=== PATIENT | female | born 1965 | race Caucasian/White ===

== ENCOUNTER 2016-04-22 19:24 | Inpatient (IN) | payer OTHER ==
--- NOTE | ~2016-04-22 | CO ---
Unit #: [id number] #: [id number] Patient: KEYLA ROMERO [id number] [place] [address] [facility]. [place], [place] [address] [id number] I MR#: [id number] NAME: KEYLA ROMERO ROOM: 55 Age: 51 Sex: F Admission Date: 04/22/2016 : 1965 Attending Physician: Jakub Johnson M.D. Primary Care Physician: Beatriz Garcia M.D. Consultation Date: 04/25/2016 CONSULTATION REPORT PRIMARY CARE PHYSICIAN Beatriz Garcia M.D. REASON FOR CONSULTATION 1. Drop in hemoglobin. 2. Nausea and vomiting. HISTORY OF PRESENT ILLNESS Ms. Romero is a very pleasant 51-year-old white female. 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 She mentions having been unwell for the past couple of months with increasing fatigue, followed by nausea and vomiting. She feels she could not walk, felt so heavy. In addition, she also been having some back pain. In the event, she presented to the ER. She was found to have a serum potassium of 1.1. The patient was given copious amounts of IV potassium and it has been hard to keep off with the potassium losses. Although, she has had some nausea and vomiting, there was no diarrhea and there was no suggestion from her history that she is having significant GI losses. PAST MEDICAL HISTORY Significant for history of bronchial asthma, hypothyroidism, and chronic back pain. PAST SURGICAL HISTORY She has had abdominal reconstructive surgery after extreme weight loss. ALLERGIES She has no known drug allergies. 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 FAMILY HISTORY Significant for stroke and dementia. HOME MEDICATIONS Include the following; Synthroid, Ambien, Klonopin, ProAir, Zofran, Ventolin, hydrocodone and acetaminophen, Alvesco, and Veramyst. REVIEW OF SYSTEMS Detailed review of organ systems does reveal some minimal weight loss. There is no history of fever, chills, or rigors. No history of headache, Unit #: [id number] #: [id number] Patient: KEYLA ROMERO seizures, chest pain, or syncope. There is history of lethargy and fatigue, as well as weakness of muscles of the lower extremities. No history of cough, expectoration, or hemoptysis. No history of dysuria, hematuria, or pyuria. No history of focal seizures or focal extremity weakness. No history of skin rash, aphthous ulcer in the mouth, or reactive arthritis. Rest of the review of organ systems is unremarkable. PHYSICAL EXAMINATION GENERAL: She is alert and oriented, and appears comfortable. VITAL SIGNS: Stable with a temperature of 98.5, pulse 92 per minute and regular, respiratory rate is 22, blood pressure 149/87. She weighs 178 pounds. Her baseline weight couple of years ago that was actually 150. HEENT: She has mild pallor. There being no icterus, lymphadenopathy, or peripheral edema. CARDIOVASCULAR: Reveal normal heart sounds. No murmurs on auscultation. LUNGS: Reveal normal breath sounds. Good air entry. ABDOMEN: Soft and nontender. Liver and spleen are not palpable. Bowel sounds normal. DIAGNOSTIC STUDIES LABORATORY RESULTS: Shows a hemoglobin of 11.6, the admission hemoglobin was 15.3. Her white count was 11.5 and is now down to 6.5, platelet count is 274. INR is 1.0. Serum chemistry shows normal BUN and creatinine and a serum potassium of 1.1 on admission. Post treatment, the patient's potassium had gone up to 4, but then dropped again to 2 later today. Blood glucose has varied between 150 to 190. CO2 shows mild metabolic acidosis and her TSH level was normal. LFTs are also normal. Tox screen is negative. Urinalysis shows nitrite positive, protein 1+, as well as positive bacteria and wbc's in the urine. CLINICAL IMPRESSION 1. The patient with significant anemia. I suspect this is probably dilutional after intravenous fluids being given. 2. There is no suggestion of overt gastrointestinal blood loss based upon the patient's history. 3. Hypokalemia, this most likely is a renal loss and the patient may have underlying renal tubular acidosis with potassium losses. A renal constant has been already done by Dr. Johnson and the patient will be seen by even attending. Lastly, the patient does have some gastrointestinal symptomatology and I suspect this is the result of hypokalemia rather than the cause of it. In view of drop in hemoglobin, an upper endoscopy will be performed later today. Based upon the latter, any further recommendations will be made. The patient will require potassium supplementation and bicarb. Considerable time was spent in explaining the patient as to possibly etiology of hypokalemia. Both she and her were reassured. An upper endoscopy will be done later today. Thank you for asking me to see this pleasant woman. I appreciate the consult. Dictated by... Stephany Lynn/dmitri TD: 04/26/2016 12:52 JOB #: [id number] Unit #: [id number] #: [id number] Patient: NICKKEYLA CONSULTATION REPORT X Ismael Oliver MD X CONSULTATION REPORT
--- NOTE | ~2016-04-22 | HP ---
Unit #: [id number] #: [id number] Patient: KEYLA ROMERO [id number] [facility]. [place], [place] [address] [id number] MR#: [id number] NAME: KEYLA ROMERO ROOM: [facility] Age: 51 Sex: F Admission Date: 04/22/2016 : 1965 Attending Physician: Rico Ibarra M.D. Primary Care Physician: Beatriz Garcia M.D. HISTORY AND PHYSICAL CHIEF COMPLAINT Weakness. HISTORY OF PRESENT ILLNESS The patient is a 51-year-old female who presents to [facility] emergency department with weakness. She states that this particular episode began approximately three weeks ago. She states that it has been progressive. It has progressed to the point where she has some profound weakness in her legs and hips and she cannot lift them. She states that all of these symptoms began back in January when she had a fall. She seems the [facility] for some back pain that she thinks might be related. In the emergency department she is noted to have a potassium of 1.1. PAST MEDICAL HISTORY Asthma, chronic pain, hypothyroidism. PAST SURGICAL HISTORY She has had abdominal reconstructive surgery after extreme weight loss. She has had "bladder tape." ALLERGIES None. SOCIAL HISTORY The patient denies tobacco, alcohol, or illicit drug use. FAMILY HISTORY Stroke and dementia. HOME MEDICATIONS Veramyst, Synthroid, Ambien, Alvesco, Klonopin, ProAir, Zofran, Ventolin, hydrocodone, and acetaminophen 7.5. REVIEW OF SYSTEMS Ten point review of systems obtained and negative except as per HPI with the addition of some weakness in her hands as well. PHYSICAL EXAMINATION VITAL SIGNS: Temperature 97.4, pulse 106, blood pressure 142/87. GENERAL: 51-year-old female in no acute distress, appears stated age. HEENT: Pupils equally round. Extraocular movements intact. Mucous membranes dry. NECK: Supple. No JVD and no lymphadenopathy. Unit #: [id number] #: [id number] Patient: KEYLA ROMERO CARDIAC: Regular rate and rhythm. No murmurs, gallops or rubs. LUNGS: Clear to auscultation bilaterally. ABDOMEN: Nontender and nondistended. Positive bowel sounds. EXTREMITIES: No clubbing, cyanosis or edema. SKIN: Warm and dry. No rashes, bruises or ulcers. PSYCH: Alert and oriented x3. Affect is appropriate. NEUROLOGIC: Cranial nerves II-XII intact grossly. Patient has bilateral lower extremity weakness. MUSCULOSKELETAL: No muscle or joint pain. No muscle or joint swelling. DIAGNOSTIC STUDIES LABORATORY STUDIES: Glucose 189, bicarb 20, potassium is 1.1, CK is 786. UA shows trace leuk esterase, nitrate positive, 5-10 white cells, 4+ bacteria and occasional squamous cells. IMAGING STUDIES: Chest x-ray is negative. ASSESSMENT AND PLAN 1. Hypokalemia: I have placed the patient on a potassium magnesium protocol. Magnesium level has been ordered. I have ordered serum renin and aldosterone levels. I have ordered TSH and cortisol levels as well. 2. Lower extremity weakness could be due to her hypokalemia. I have ordered an MRI of her lumbar spine; however, given some complaints of chronic back pain. She states this particular episode has been ongoing for three weeks. She states that it also affects her hands, which does not point to a lumbar spine process; however, given her complaints of intermittent back pain, I have gone ahead and ordered the MRI. 3. Prophylaxis: The patient started on Lovenox. Dictated by Rico Ibarra M.D. KEVNI/leroy TD: 04/23/2016 05:46 JOB #: [id number] HISTORY AND PHYSICAL X Rico Ibarra MD X HISTORY AND PHYSICAL
--- NOTE | ~2016-04-22 | EKG ---
PATIENT: KEYLA ROMERO UNIT #: [id number] Ventricular Rate: 91 BPM Atrial Rate: 91 BPM P-R Interval: 158 ms QRS Duration: 88 ms Q-T Interval: 400 ms QTC Calculation(Bezet): 492 ms P Freehold: 62 degrees Calculated R Freehold: -49 degrees Calculated T Freehold: 57 degrees Diagnosis Line: Normal sinus rhythm Diagnosis Line: Left anterior fascicular block Diagnosis Line: Nonspecific T wave abnormality Diagnosis Line: Prolonged QT Diagnosis Line: Abnormal ECG Diagnosis Line: When compared with ECG of 22-APR-2016 17:44, Diagnosis Line: Criteria for Inferior infarct are no longer Diagnosis Line: Present Diagnosis Line: ST no longer depressed in Lateral leads Diagnosis Line: Nonspecific T wave abnormality, worse in Inferior Diagnosis Line: leads Diagnosis Line: Diagnosis Line: Confirmed by EMLLISSA SINGH MD ([id number]) on Diagnosis Line: 04/30/2016 3:59:48 PM INTERPRETING MD: FRANCISCO JOSEPH
--- NOTE | ~2016-04-22 | US77 ---
[facility] A Service of [facility] & [facility] RADIOLOGY TEXT RESULTS PATIENT: KEYLA ROMERO LOCATION: [place] [address] : [birth year] UNIT #: [id number] AGE: [address]: Jakub Johnson MD SEX: F ORDER DR: [id number] [facility] [address] [place], [place] [address] [id number] I MR#: [id number] Acc #: [id number] NAME: KEYLA ROMERO : 1965 SEX: F STUDY DATE/TIME: 04/25/2016 21:29 UNIT: [facility] ROOM: [facility] STUDY DESCRIPTION: US Kidney Bilateral Complete Attending Physician: Jakub Johnson M.D. Ordering Physician: Jakub Johnson M.D. Primary Care Physician: Beatriz Garcia M.D. MEDICAL IMAGING REPORT This report is preliminary unless electronic signature is present EXAM Bilateral renal ultrasound, date of study is 04/25/2016. COMPARISON None. HISTORY Urinary tract infection for 2 days. FINDINGS Both kidneys are normal in size and echotexture without evidence of mass, calcification or hydronephrosis on either side. Urinary bladder is normal. IMPRESSION Normal negative bilateral renal ultrasound. Dictated by... Khanh Frank M.D. THIS IS AN ELECTRONICALLY VERIFIED REPORT Khanh Frank M.D. at 04/29/2016 4:33 PM TEV/psc TD: 04/26/2016 03:03 JOB #: [id number] MEDICAL IMAGING REPORT COPY
--- NOTE | ~2016-04-22 | TOC ---
Unit #: [id number] #: [id number] Patient: KEYLA ROMERO [id number] [address] [place], [place] [address] [id number] I MR#: [id number] NAME: KEYLA ROMERO ROOM: [facility] Age: 51 Sex: F Admission Date: 04/22/2016 : 1965 Attending Physician: Jakub Johnson M.D. Primary Care Physician: Beatriz Garcia M.D. TRANSFER OF CARE SUMMARY CONSULTANTS 1. Dr. Ismael Oliver. 2. Dr. Lai Umaña Jr. PROCEDURES DONE EGD. Essentially normal study. ADMITTING DIAGNOSES 1. Hypokalemia. 2. History of asthma. 3. Chronic pain. 4. Hypothyroidism. FURTHER DIAGNOSES 1. Hypokalemia, possibly secondary to renal tubular acidosis. 2. Urinary tract infection with Escherichia coli. 3. Anemia, possibly dilutional. HISTORY OF PRESENT ILLNESS The patient is a 51-year-old lady with a past medical history of asthma, hypothyroidism, chronic back pain. Presented to the hospital on the with the chief complaint of profound weakness. In the initial workup, her potassium was noted to be 1.1, and she was admitted for further management. She was also noted to have a urinary tract infection with E-coli. She is started on Rocephin, to which is sensitive. She needs 3 more days of antibiotics, until the 6th of this month, to complete the duration of antimicrobials. For the hypokalemia, initially she was getting replacement but persistently remaining low, and her bicarb is also low. Renal is consulted. They are working her up for renal tubular acidosis. Anemia. Her hemoglobin dropped down from 15 to 11 during the hospital course. For further workup, Dr. Oliver was consulted. He did an EGD, which was essentially normal. No colonoscopy is planned at this point. Thought to be possibly dilutional. Will monitor. Kindly note a final discharge summary will be dictated by me or my colleague at the time of actual discharge. Dictated by... Unit #: [id number] #: [id number] Patient: KEYLA ROMERO Jakub Johnson M.D. PS/db TD: 04/26/2016 12:12 JOB #: [id number] TRANSFER OF CARE SUMMARY X X TRANSFER OF CARE SUMMARY
--- NOTE | ~2016-04-22 | CR72 ---
[facility] A Service of [facility] & [facility] RADIOLOGY TEXT RESULTS PATIENT: KEYLA ROMERO LOCATION: [place] [address] : [birth year] UNIT #: [id number] AGE: [address]: Jakub Johnson MD SEX: F ORDER DR: [id number] [facility] [address] [place], [place] [address] [id number] I MR#: [id number] Acc #: [id number] NAME: KEYLA ROMERO : 1965 SEX: F STUDY DATE/TIME: 04/22/2016 20:59 UNIT: [facility] ROOM: [facility] STUDY DESCRIPTION: CR Chest Single View Portable Attending Physician: Rico Ibarra M.D. Ordering Physician: Deng Hernandez M.D. Primary Care Physician: Beatriz Garcia M.D. MEDICAL IMAGING REPORT This report is preliminary unless electronic signature is present EXAM Portable chest, 04/22/2016 HISTORY Generalized weakness. Upper and lower bilateral lower extremity weakness and pain with shortness of breath on exertion for 3 weeks. FINDINGS A single AP portable view of the chest shows both lungs to be clear. The heart is normal in size. The mediastinal contour is normal. No significant bone abnormalities are seen. IMPRESSION Normal portable chest. Dictated by... Praveen Cassidy M.D. THIS IS AN ELECTRONICALLY VERIFIED REPORT Praveen Cassidy M.D. at 04/23/2016 4:20 PM NEELAM/dheeraj TD: 04/23/2016 03:30 JOB #: [id number] MEDICAL IMAGING REPORT COPY
--- NOTE | ~2016-04-22 | CO ---
Unit #: [id number] #: [id number] Patient: KEYLA ROMERO [id number] [address] [place], [place] [address] [id number] I MR#: [id number] NAME: KEYLA ROMERO ROOM: [facility] Age: 51 Sex: F Admission Date: 04/22/2016 : 1965 Attending Physician: Jakub Johnson M.D. Primary Care Physician: Beatriz Garcia M.D. Consultation Date: 04/25/2016 CONSULTATION REPORT REASON FOR CONSULTATION Profound hypokalemia. HISTORY OF PRESENT ILLNESS Ms. Romero is a very pleasant 51-year-old female, who was brought to the emergency room on 04/22/2016 for complaints of severe weakness. It had been going on for several weeks and getting progressively worse to the point where her family was having to help her and lift her legs and get herself into and out of a chair. She had had similar type of symptoms back in January when she had a fall that seem to get better. She was found to have a potassium level of 1.1 on admission that has been difficult to correct. She has been getting aggressive potassium replacement and got up to 4.1 yesterday morning before dropping back down to 2.1 today. This has been occurring in the setting of a metabolic acidosis as well. She denies any history of kidney stones. There is a family history of rheumatologic disease with her mother having rheumatoid arthritis. The patient has had some mild nausea at times and just had an EGD that was normal. She denies any preadmission vomiting or diarrhea issues. No swelling issues. She is unaware of any blood pressure issues, although she has had some occasional high readings here. She denies any drug use. She does not sniff or brewer any paint. PAST MEDICAL HISTORY Significant for chronic back pain with degenerative disk disease, hypothyroidism, and asthma. PAST SURGICAL HISTORY She has had a tummy tuck, breast lift, and a bladder lift. MEDICATIONS Her home medications are hydrocodone p.r.n., Ventolin inhaler, Zofran p.r.n., ProAir inhaler, Alvesco 2 puffs as needed, Klonopin b.i.d., Veramyst inhaler, Synthroid 137 mcg a day, and Ambien at bedtime. ALLERGIES She has no known drug allergies. FAMILY HISTORY Significant for dementia, stroke, as well as rheumatoid arthritis. SOCIAL HISTORY The patient denies any tobacco, alcohol, or drug use. Urine tox screen, which is positive for the opiates. Unit #: [id number] #: [id number] Patient: KEYLA ROMERO REVIEW OF SYSTEMS A complete 12-point review of systems was completed with the above findings. She has not had any fevers or chills. No headache. No dizziness. No nosebleed, sore throat, or earache. No chest pain. She has had an occasional palpitations over the last several weeks. No shortness of breath. No bright red blood per rectum or melena. No hematuria. No flank pain, but does have chronic low back pain. No rashes. No itching. No fevers. No chills. No night sweats or hot flashes. No intolerance to heat or cold. No bleeding issues. No recent weight changes. Unless otherwise indicated, the review of systems was negative. PHYSICAL EXAMINATION VITAL SIGNS: The patient is afebrile, pulse 92, respiratory rate 22, blood pressure 149/87. GENERAL: This is a pleasant 51-year-old white female, who is alert and oriented, currently in no acute distress. HEENT: Head is atraumatic and normocephalic. Eyes show pink conjunctivae with no scleral icterus. No nasal drainage or nosebleed. Oropharynx is moist. No thrush. NECK: Shows no JVD. No rigidity. HEART: Regular rate and rhythm with no murmur or rub appreciated. LUNGS: Clear bilaterally with no wheezing or rhonchi. Breathing is nonlabored. ABDOMEN: Soft and nontender. Bowel sounds are present. EXTREMITIES: No lower extremity clubbing, cyanosis, or edema. SKIN: Dry. No rashes identified. She does have numerous tattoos. MUSCULOSKELETAL: No joint effusions noted. No CVA tenderness to palpation. NEUROLOGIC: Cranial nerves are grossly intact with no gross motor deficits. LYMPHATIC: There is no neck or cervical lymphadenopathy. PSYCHIATRIC: Mood and affect appear normal. DIAGNOSTIC STUDIES LABORATORY RESULTS: Admission CBC showed a slightly elevated white count of 11.5. Chemistry on admission showed a potassium of 1.1 with a bicarb of 20, anion gap of 12, creatinine was normal at 1. CK level was a little bit elevated at 786. INR was 1. Magnesium level was normal at 2.9. Urinalysis was nitrite positive with white blood cells and bacteria. Her pH was 6.5. Urine drug screen, again was positive for opiates. Thyroid-stimulating tests was normal at 3. Cortisol level was 18. Hemoglobin A1c 5.6. Renin in urine potassium was on the higher side at 31. Potassium level did come up yesterday to normal at 4.1, but was back down to 2.1 this morning with a bicarb of 16 and anion gap of 6. Urine culture was positive for E. coli. ASSESSMENT AND PLAN 1. Hypokalemia. Duration of this problem is not known as she has not been getting regular blood work, it sounds like or seeing a regular doctor as of late. Her previous doctor apparently only checked her thyroid test. I suspect she has a renal tubular acidosis and we will start workup tonight. Urine studies have been ordered. I will be also running a transtubular potassium gradient study, but it looks like she is losing potassium through her kidneys. I will start replacement with potassium citrate tonight and recheck a potassium level after her current 6 potassium run this evening is completed. 2. Non-anion gap acidosis. This appears to be due to the renal tubular Unit #: [id number] #: [id number] Patient: KEYLA ROMERO acidosis, as she does not seem to have any gastrointestinal losses or any other cause of elevate non-anion gap acidosis. We will be replacing the bicarbonate with citrate and again this will be started tonight. 3. Questionable hypertension. Renin was ordered on admission as well as an COLLIN level, but no aldosterone. I will be checking an aldosterone level in the morning. Blood pressure does not seem bad enough to consider hyperaldosterone as the primary cause of the hypokalemia. 4. Urinary tract infection, on antibiotics. 5. Chronic pain syndrome with back pain. 6. The patient did have an EGD today that was normal. I would like to thank Dr. Johnson for this consult and the opportunity to participate in evaluation and care of Ms. oRmero. Dictated by... Lai Umaña Jr., M.D. RAYMOND/dmitri TD: 04/26/2016 01:55 JOB #: [id number] CONSULTATION REPORT X Lai Umaña MD CONSULTATION REPORT
--- NOTE | ~2016-04-22 | OR ---
Unit #: [id number] #: [id number] Patient: KEYLA ROMERO [id number] [address] [place], [place] [address] [id number] I MR#: [id number] NAME: KEYLA ROMERO ROOM: [facility] Date of Procedure: 04/25/2016 Admission Date: 04/22/2016 Surgeon: Ismael Oliver M.D. : 1965 Attending Physician: Jakub Johnson M.D. Primary Care Physician: Beatriz Garcia M.D. OPERATIVE REPORT PRIMARY CARE PHYSICIAN Beatriz Garcia M.D. PREOPERATIVE DIAGNOSES Nausea, vomiting, severe hypokalemia. PROCEDURE PERFORMED Upper gastrointestinal endoscopy. POSTOPERATIVE DIAGNOSIS Completely normal examination up to third part of duodenum. RECOMMENDATIONS The patient does not have any pathology in the upper gastrointestinal tract. I suggest doing a stool study for occult blood and consider an outpatient colonoscopy at a later date. Right now, the most significant problem resolved is the profound hypokalemia, most likely from renal losses due to some form of renal tubular acidosis. SEDATION USED MAC. DESCRIPTION OF PROCEDURE Following detailed explanation of potential risks and complications of an upper endoscopy, namely perforation, bleeding, and complication related to sedation, the patient was brought to GI lab and laid in the left lateral decubitus position. Lubricated tip of the Olympus video upper endoscope was passed through the bite block into the proximal esophagus under direct vision. The entire esophageal mucosa was examined and appeared normal. Z-line was nicely demarcated, there being no esophagitis or hiatus hernia. The scope was then advanced into the gastric cavity and the latter was insufflated. Mucosa of the fundus, body, and antrum was examined and appeared unremarkable. Pylorus was intubated with visualization of the normal duodenal bulb and second and third part of the duodenum. Upon withdrawal and retroflexion, incisura, cardia, and greater curve was examined and no additional findings were noted. The scope was then withdrawn in the distal esophagus. The entire esophageal mucosa was examined all the way up to pharynx. No additional findings were noted. The patient tolerated the procedure without any postprocedure complications. Unit #: [id number] #: [id number] Patient: KEYLA ROMERO Dictated by... Stephany Lynn/dmitri TD: 04/26/2016 12:26 JOB #: [id number] . OPERATIVE REPORT X Ismael Oliver MD X PROCEDURE OPERATIVE NOTE
--- NOTE | ~2016-04-22 | DS ---
Unit #: [id number] #: [id number] Patient: KEYLA ROMERO [id number] [address] [address] [id number] I MR#: [id number] NAME: KEYLA ROMERO ROOM: [facility] Age: 51 Sex: F Admission Date: 04/22/2016 : 1965 Discharge Date: 04/28/2016 Attending Physician: Jakub Johnson M.D. Primary Care Physician: Beatriz Garcia M.D. DISCHARGE SUMMARY FINAL DIAGNOSIS Renal tubular acidosis type 1. SECONDARY DIAGNOSES 1. Hypokalemia. 2. Anemia. 3. Urinary tract infection. 4. Hypothyroidism. 5. Insomnia. CONSULTS 1. Dr. Ismael Oliver, Gastroenterology. 2. Dr. Thomas Templeton, Nephrology. PROCEDURES EGD. HOSPITAL COURSE The patient is a pleasant 51-year-old female who presented with symptomatic anemia with increasing fatigue and weakness. Dr. Oliver did see the patient and had an EGD. The plan is for colonoscopy as an outpatient. She was profoundly hypokalemic during this hospitalization and had to be aggressively managed. The working diagnosis right is RTA 1. She was evaluated and is suitable and stable for discharge and will be discharged in stable condition. DISCHARGE MEDICATIONS 1. Spironolactone 100 mg p.o. daily. 2. Franklin 7.5/325 at 2 tablets p.o. at bedtime, prescription given for 14 pills. 3. Clonazepam 1 mg p.o. b.i.d. 4. Ambien 5 mg p.o. at bedtime p.r.n., prescription given for 10 pills. 5. Flonase nasal 1 squirt to each nostril b.i.d. 6. Asmanex HFA 1 inhalation daily. 7. Vantin 200 mg p.o. b.i.d. for 7 days for UTI. FOLLOWUP 1. She is to schedule followup with primary care physician in three to five days. 2. She is to schedule followup with Nephrology in one to two weeks. Time spent coordinating discharge about 27 minutes. Dictated by... Unit #: [id number] #: [id number] Patient: KEYLA ROMERO M.D. OO/am TD: 04/28/2016 15:17 JOB #: [id number] DISCHARGE SUMMARY X Genaro Campoverde MD DISCHARGE SUMMARY
--- NOTE | ~2016-04-22 | EKG ---
PATIENT: KEYLA ROMERO UNIT #: [id number] Ventricular Rate: 99 BPM Atrial Rate: 99 BPM P-R Interval: 178 ms QRS Duration: 100 ms Q-T Interval: 384 ms QTC Calculation(Bezet): 492 ms P Millry: 40 degrees Calculated R Millry: -63 degrees Calculated T Millry: 71 degrees Diagnosis Line: Normal sinus rhythm Diagnosis Line: Possible Left atrial enlargement Diagnosis Line: Left anterior fascicular block Diagnosis Line: Marked ST abnormality, possible lateral Diagnosis Line: subendocardial injury Diagnosis Line: Abnormal ECG Diagnosis Line: No previous ECGs available Diagnosis Line: Confirmed by CHIDI BRYANT MD ([id number]) on Diagnosis Line: 04/23/2016 11:55:13 AM INTERPRETING : JASS
--- NOTE | ~2016-04-22 | EKG ---
PATIENT: KEYLA ROMERO UNIT #: [id number] Ventricular Rate: 98 BPM Atrial Rate: 98 BPM P-R Interval: 156 ms QRS Duration: 86 ms Q-T Interval: 386 ms QTC Calculation(Bezet): 492 ms P Wickliffe: 48 degrees Calculated R Wickliffe: -44 degrees Calculated T Wickliffe: 13 degrees Diagnosis Line: Normal sinus rhythm Diagnosis Line: Left axis deviation Diagnosis Line: Nonspecific T wave abnormality Diagnosis Line: Abnormal ECG Diagnosis Line: When compared with ECG of 27-APR-2016 08:33, Diagnosis Line: (unconfirmed) Diagnosis Line: No significant change was found Diagnosis Line: Confirmed by MELLISSA SINGH MD ([id number]) on Diagnosis Line: 04/30/2016 4:01:41 PM INTERPRETING MD: FRANCISCO JOSEPH
--- NOTE | ~2016-04-22 | XA166 ---
[facility] A Service of [facility] & [facility] RADIOLOGY TEXT RESULTS PATIENT: KEYLA ROMERO LOCATION: [facility] 553-01 : [birth year] UNIT #: [id number] AGE: [address]: Jakub Johnson MD SEX: F ORDER DR: [id number] [facility] [address] [place], [place] [address] [id number] I MR#: [id number] Acc #: [id number] NAME: KEYLA ROMERO : 1965 SEX: F STUDY DATE/TIME: 04/23/2016 15:07 UNIT: C5B ROOM: [facility] STUDY DESCRIPTION: XA PICC Line Placement WO Port Attending Physician: Jakub Johnson M.D. Ordering Physician: Jakub Johnson M.D. Primary Care Physician: Beatriz Garcia M.D. MEDICAL IMAGING REPORT This report is preliminary unless electronic signature is present EXAM PICC placement with ultrasound and fluoroscopic guidance HISTORY Venous access needed. TECHNIQUE The procedure was explained to the patient, including risks, benefits and complications. Informed consent was obtained and a formal time-out procedure was utilized. Full barrier sterile technique was employed via standard protocol. Using full barrier sterile technique and following local anesthesia with 1% Xylocaine, a brachial vein was punctured above the elbow on the left with ultrasound guidance. Ultrasound was used to confirm vessel patency, which was confirmed, and permanent ultrasound images were recorded. An 0.018 guidewire was passed into the superior vena cava under fluoroscopic guidance. A dilator and sheath were placed over the wire. A 5-Belizean double-lumen PICC was measured to 45 cm, cut and deployed, with the tip positioned in the upper right atrium. The line was secured in place with an adhesive patch and antibiotic patch. Total fluoroscopy time 0.1 minutes. Total dose 2 mGy. IMPRESSION Successful placement of a 5-Belizean double-lumen PICC via the left brachial vein above the elbow with ultrasound and fluoroscopic guidance. Dictated by... Med Warren M.D. THIS IS AN ELECTRONICALLY VERIFIED REPORT Med Warren M.D. at 04/24/2016 4:42 PM [facility] A Service of [facility] RADIOLOGY TEXT RESULTS PATIENT: KEYLA ROMERO LOCATION: [facility] [id number] : [birth year] UNIT #: [id number] AGE: [address]: Jakub Johnson MD SEX: F ORDER DR: KESHAV/azul TD: 04/23/2016 21:26 JOB #: [id number] MEDICAL IMAGING REPORT COPY
--- NOTE | ~2016-04-22 | CT71 ---
[facility] A Service of [facility] & [facility] RADIOLOGY TEXT RESULTS PATIENT: KEYLA ROMERO LOCATION: [facility] 55- : [birth year] UNIT #: [id number] AGE: [address]: Jakub Johnson MD SEX: F ORDER DR: [id number] [facility] [address] [place], [place] [address] [id number] I MR#: [id number] Acc #: [id number] NAME: KEYLA ROMERO : 1965 SEX: F STUDY DATE/TIME: 04/22/2016 18:40 UNIT: [facility] ROOM: [facility] STUDY DESCRIPTION: CT Head Wo Contrast Attending Physician: Rico Ibarra M.D. Ordering Physician: Deng Hernandez M.D. Primary Care Physician: Beatriz Garcia M.D. MEDICAL IMAGING REPORT This report is preliminary unless electronic signature is present EXAM Head CT without contrast, 04/22/2016 HISTORY Dizziness and generalized weakness for 2 months with no known injury. TECHNIQUE Axial noncontrast images were obtained from the skull base to the vertex. This CT exam was performed with one or more of the following radiation dose reduction techniques: Automatic exposure control, adjustment of mA and/or kV according to patient size, and iterative reconstruction. FINDINGS Ventricular size and configuration are normal. There is no evidence of acute infarct or hemorrhage. There are no extraaxial fluid collections. No mass lesion or mass effect is seen. There are no skull fractures. IMPRESSION Normal noncontrast head CT. Dictated by... Praveen Cassidy M.D. THIS IS AN ELECTRONICALLY VERIFIED REPORT Praveen Cassidy M.D. at 04/23/2016 4:19 PM KRT/azul TD: 04/23/2016 01:46 JOB #: [id number] MEDICAL IMAGING REPORT COPY
[2016-04-22 18:23] LABS: BASOPHIL# 0.1 X10e3 (0-0.3); BASOPHIL% 1.1 % (0-2.5); EOSINOPHIL# 0.1 X10e3 (0-0.7); EOSINOPHIL% 1.1 % (0.0-7.0); HEMATOCRIT 44.1 % (35.0-45.0); HEMOGLOBIN 15.3 gm/dL (12.0-16.0); LYMPHOCYTE# 1.8 X10e3 (1.0-3.5); LYMPHOCYTE% 15.7 % (17.0-45.0); MEAN CELL VOLUME 85.3 FL (83-96); MEAN CORPUSCULAR HEMOGLOBIN 29.5 PG (28-34); MEAN CORPUSCULAR HGB CONC 34.7 g/dL (30-36); MEAN PLATELET VOLUME 9.2 FL (6.5-11.5); MONOCYTE# 0.8 X10e3 (0-1.0); MONOCYTE% 6.5 % (3.0-12.0); NEUTROPHIL# 8.7 X10e3 (1.5-7.1); NEUTROPHIL% 75.6 % (40-75); PLATELET COUNT 411 X10e3 (140-420); RED BLOOD COUNT 5.18 X10e (3.90-5.30); WHITE BLOOD COUNT 11.5 X10e3 (4.0-10.5)
[2016-04-22 18:30] LABS: DIFF IND NO
[2016-04-22 18:44] LABS: ALBUMIN SERUM 4.6 g/dL (3.5-5.0); ALKALINE PHOSPHATASE 76 U/L (32-92); ALT (SGPT) 36 U/L (10-40); AST (SGOT) 34 U/L (10-42); BILIRUBIN, DIRECT 0.1 mg/dL (0.0-0.2); BILIRUBIN,INDIRECT 0.6 mg/dL (0.0-0.9); BILIRUBIN,TOTAL 0.7 mg/dL (0.2-2.0); BLOOD UREA NITROGEN 9 mg/dL (9-23); CALCIUM SERUM 9.8 mg/dL (8.4-10.2); CARBON DIOXIDE 20 mmol/L (22-31); CHLORIDE 105 mmol/L (100-111); CPK (CREATINE PHOSPHOKINASE) 786 IU/L (26-140); GLOM FILT RATE Estimated ABOVE60 mL/min (>60); GLUCOSE FASTING 189 mg/dL (70-110); PARTIAL THROMBOPLASTIN TIME 28.3 SECONDS (23.5-31.3); PROTEIN TOTAL SERUM 7.9 g/dL (6.0-8.3); PROTHROMBIN TIME (PATIENT) 10.8 SECONDS (9.6-11.5); SODIUM 137 mmol/L (135-145)
[2016-04-22 18:47] LABS: POTASSIUM 1.1 mmol/L (3.5-5.1)
[~2016-04-22 19:24] MED LIST: ALVESCO INHALER INH; KLONOPIN PO; SYNTHROID PO; ULTRAM PO; ZOFRAN ODT4 MG PO; [UNRECOGNIZED DRUG - OTHER]
[2016-04-22 19:30] LABS: POC - CKMB 21.4 ng/mL (0.0-7.9); POC - TROPONIN <0.05 ng/mL (<=0.05)
[2016-04-22 20:20] LABS: URINE SOURCE CLEAN CATCH
[2016-04-22 20:39] LABS: CULTURE INDICATED? YES; U HYALINE CASTS AUWI 0-2 /[LPF]; URBCS1 AUWI 0-2 /[HPF] (0-2); URINE APPEARANCE CLOUDY; URINE BACTERIA AUWI 4+ (NEGATIVE); URINE BILIRUBIN NEG (NEG); URINE BLOOD 2+ (NEG); URINE COLOR YELLOW; URINE GLUCOSE NEG (NEG); URINE KETONE NEG (NEG); URINE LEUKOCYTE ESTERASE TRACE (NEG); URINE NITRATE POS (NEG); URINE PH 6.5 (5-8); URINE PROTEIN 1+ (NEG); URINE SPECIFIC GRAVITY 1.008 (1.003-1.035); URINE SQUAMOUS EPITHELIAL CELL OCC /[HPF]; URINE UROBILINOGEN 0.2 MG/DL (NEG)
[2016-04-22 20:40] LABS: AMPHETAMINE NEG (NEG); BARBITURATES NEG (NEG); BENZODIAZEPINES NEG (NEG); COCAINE NEG (NEG); MARIJUANA NEG (NEG); OPIATES POS (NEG); TRICYCLIC ANTIDEPRESSANTS NEG (NEG); U METHADONE NEG (NEG)
[2016-04-22 20:55] LABS: POC - CKMB 14.2 ng/mL (0.0-7.9); POC - TROPONIN <0.05 ng/mL (<=0.05)
[2016-04-22 21:17] LABS: BLOOD UREA NITROGEN 9 mg/dL (9-23); CALCIUM SERUM 9.7 mg/dL (8.4-10.2); CARBON DIOXIDE 19 mmol/L (22-31); CHLORIDE 106 mmol/L (100-111); GLOM FILT RATE Estimated ABOVE60 mL/min (>60); GLUCOSE FASTING 152 mg/dL (70-110); SODIUM 138 mmol/L (135-145)
[2016-04-22 21:19] LABS: POTASSIUM 1.1 mmol/L (3.5-5.1)
[2016-04-22] MEDS ORDERED: HYDROCODONE/APA1 T16 PO (22:15)
[2016-04-22] MEDS ORDERED: ALBUTEROL17 GM INH (22:21)
[2016-04-22] MEDS ORDERED: ZOFRAN PO (22:22)
[2016-04-22] MEDS ORDERED: PROAIR RESPICL90 MCG INH (22:23)
[2016-04-22] MEDS ORDERED: ALVESCO6.1 G1 INH (22:24)
[2016-04-22] MEDS ORDERED: KLONOPIN0.5 M3 PO (22:24)
[2016-04-22] MEDS ORDERED: AMBIEN12.5 M1 DOB (22:25)
[2016-04-22] MEDS ORDERED: VERAMYST10 GM (22:25)
[2016-04-22] MEDS ORDERED: SYNTHROID137 MCG PO (22:25)
[2016-04-23 05:38] LABS: HEMATOCRIT 40.1 % (35.0-45.0); HEMOGLOBIN 13.9 gm/dL (12.0-16.0); MEAN CELL VOLUME 86.8 FL (83-96); MEAN CORPUSCULAR HGB CONC 34.6 g/dL (30-36); MEAN PLATELET VOLUME 9.6 FL (6.5-11.5); RED BLOOD COUNT 4.62 X10e (3.90-5.30); RED CELL DISTRIBUTION WIDTH 15.2 % (11.0-15.5); WHITE BLOOD COUNT 10.3 X10e3 (4.0-10.5)
[2016-04-23 06:10] LABS: ALBUMIN SERUM 4.2 g/dL (3.5-5.0); ALKALINE PHOSPHATASE 70 U/L (32-92); ALT (SGPT) 33 U/L (10-40); AST (SGOT) 32 U/L (10-42); BILIRUBIN,TOTAL 0.8 mg/dL (0.2-2.0); BLOOD UREA NITROGEN 10 mg/dL (9-23); CALCIUM SERUM 9.4 mg/dL (8.4-10.2); CARBON DIOXIDE 17 mmol/L (22-31); CHLORIDE 109 mmol/L (100-111); CREATININE SERUM 0.8 mg/dL (0.6-1.4); GLOM FILT RATE Estimated ABOVE60 mL/min (>60); GLUCOSE FASTING 150 mg/dL (70-110); PROTEIN TOTAL SERUM 7.3 g/dL (6.0-8.3); SODIUM 139 mmol/L (135-145)
[2016-04-23 06:17] LABS: POTASSIUM 1.4 mmol/L (3.5-5.1)
[2016-04-23 07:09] LABS: THYROID STIMULATING HORMONE 3.12 uIU/ml (0.34-5.60)
[2016-04-23 07:16] LABS: FREE THYROXIN (T4) 1.56 ng/dL (0.58-1.64)
[2016-04-23 13:16] LABS: BUN/CREATININE RATIO 9.09; CREATININE SERUM 1.1 mg/dL (0.6-1.4); GLOM FILT RATE Estimated 55.7 mL/min (>60)
[2016-04-23 13:20] LABS: POTASSIUM 1.7 mmol/L (3.5-5.1)
[2016-04-24 07:29] LABS: BLOOD UREA NITROGEN 10 mg/dL (9-23); BUN/CREATININE RATIO 11.11; CALCIUM SERUM 8.1 mg/dL (8.4-10.2); CARBON DIOXIDE 18 mmol/L (22-31); CHLORIDE 109 mmol/L (100-111); CREATININE SERUM 0.9 mg/dL (0.6-1.4); GLOM FILT RATE Estimated ABOVE60 mL/min (>60); GLUCOSE FASTING 132 mg/dL (70-110); SODIUM 135 mmol/L (135-145)
[2016-04-24 07:30] LABS: POTASSIUM 4.1 mmol/L (3.5-5.1)
[2016-04-25 05:14] LABS: HEMATOCRIT 33.3 % (35.0-45.0); MEAN CELL VOLUME 86.9 FL (83-96); MEAN CORPUSCULAR HEMOGLOBIN 30.3 PG (28-34); MEAN CORPUSCULAR HGB CONC 34.8 g/dL (30-36); MEAN PLATELET VOLUME 9.3 FL (6.5-11.5); RED BLOOD COUNT 3.83 X10e (3.90-5.30); RED CELL DISTRIBUTION WIDTH 15.7 % (11.0-15.5); WHITE BLOOD COUNT 6.5 X10e3 (4.0-10.5)
[2016-04-25 05:31] LABS: HEMOGLOBIN 11.6 gm/dL (12.0-16.0)
[2016-04-25 11:16] LABS: BLOOD UREA NITROGEN 7 mg/dL (9-23); BUN/CREATININE RATIO 8.75; CALCIUM SERUM 7.8 mg/dL (8.4-10.2); CARBON DIOXIDE 16 mmol/L (22-31); CHLORIDE 114 mmol/L (100-111); CREATININE SERUM 0.8 mg/dL (0.6-1.4); GLOM FILT RATE Estimated ABOVE60 mL/min (>60); GLUCOSE FASTING 205 mg/dL (70-110); SODIUM 136 mmol/L (135-145)
[2016-04-25 11:18] LABS: POTASSIUM 2.1 mmol/L (3.5-5.1)
[2016-04-25 20:25] LABS: URINE APPEARANCE CLEAR; URINE BILIRUBIN NEG (NEG); URINE BLOOD 1+ (NEG); URINE COLOR YELLOW; URINE GLUCOSE NEG (NEG); URINE KETONE NEG (NEG); URINE LEUKOCYTE ESTERASE NEG (NEG); URINE NITRATE NEG (NEG); URINE PROTEIN 1+ (NEG); URINE SPECIFIC GRAVITY 1.014 (1.003-1.035); URINE UROBILINOGEN 0.2 MG/DL (NEG)
[2016-04-25 20:27] LABS: CULTURE INDICATED? NO; OSMOLALITY,URINE 396 mOsmo/kg (250-900); URBCS1 AUWI 0-2 /[HPF] (0-2); URINE BACTERIA AUWI NEG (NEGATIVE); URINE SQUAMOUS EPITHELIAL CELL OCC /[HPF]
[2016-04-25 20:28] LABS: CREATININE,RANDOM URINE 93 mg/dL; POTASSIUM,URINE RANDOM 34 mmol/L; SODIUM URINE RANDOM 74 mmol/L
[2016-04-26 06:33] LABS: HEMATOCRIT 32.1 % (35.0-45.0); HEMOGLOBIN 11.1 gm/dL (12.0-16.0); MEAN CELL VOLUME 88.8 FL (83-96); MEAN CORPUSCULAR HEMOGLOBIN 30.8 PG (28-34); MEAN CORPUSCULAR HGB CONC 34.7 g/dL (30-36); MEAN PLATELET VOLUME 9.3 FL (6.5-11.5); RED BLOOD COUNT 3.61 X10e (3.90-5.30); RED CELL DISTRIBUTION WIDTH 15.6 % (11.0-15.5); WHITE BLOOD COUNT 4.8 X10e3 (4.0-10.5)
[2016-04-26 07:07] LABS: BLOOD UREA NITROGEN 7 mg/dL (9-23); BUN/CREATININE RATIO 8.75; CALCIUM SERUM 8.4 mg/dL (8.4-10.2); CARBON DIOXIDE 19 mmol/L (22-31); CHLORIDE 112 mmol/L (100-111); CPK (CREATINE PHOSPHOKINASE) 1030 IU/L (26-140); CREATININE SERUM 0.8 mg/dL (0.6-1.4); GLOM FILT RATE Estimated ABOVE60 mL/min (>60); GLUCOSE FASTING 139 mg/dL (70-110); SODIUM 139 mmol/L (135-145)
[2016-04-26 07:13] LABS: POTASSIUM 2.6 mmol/L (3.5-5.1)
[2016-04-26 09:52] LABS: BLOOD UREA NITROGEN 6 mg/dL (9-23); CALCIUM SERUM 8.3 mg/dL (8.4-10.2); CARBON DIOXIDE 17 mmol/L (22-31); CHLORIDE 108 mmol/L (100-111); CREATININE SERUM 0.8 mg/dL (0.6-1.4); GLOM FILT RATE Estimated ABOVE60 mL/min (>60); GLUCOSE FASTING 232 mg/dL (70-110); SODIUM 136 mmol/L (135-145)
[2016-04-26 09:54] LABS: POTASSIUM 2.8 mmol/L (3.5-5.1)
[2016-04-26 20:59] LABS: URINE POTASSIUM 38.4 MMOL/L
[2016-04-26 21:02] LABS: URINE CREATININE 96.6 mg/dL
[2016-04-26 21:04] LABS: URINE 24 HOUR CREATININE CALC 1.3 G/24HR (0.7-2.0)
[2016-04-27 07:13] LABS: HEMATOCRIT 30.2 % (35.0-45.0); HEMOGLOBIN 10.2 gm/dL (12.0-16.0); MEAN CELL VOLUME 90.6 FL (83-96); MEAN CORPUSCULAR HEMOGLOBIN 30.7 PG (28-34); MEAN CORPUSCULAR HGB CONC 33.9 g/dL (30-36); MEAN PLATELET VOLUME 9.5 FL (6.5-11.5); RED BLOOD COUNT 3.34 X10e (3.90-5.30); RED CELL DISTRIBUTION WIDTH 15.2 % (11.0-15.5); WHITE BLOOD COUNT 4.2 X10e3 (4.0-10.5)
[2016-04-27 08:12] LABS: BLOOD UREA NITROGEN 8 mg/dL (9-23); BUN/CREATININE RATIO 11.42; CALCIUM SERUM 8.3 mg/dL (8.4-10.2); CARBON DIOXIDE 17 mmol/L (22-31); CHLORIDE 112 mmol/L (100-111); CREATININE SERUM 0.7 mg/dL (0.6-1.4); GLOM FILT RATE Estimated ABOVE60 mL/min (>60); GLUCOSE FASTING 220 mg/dL (70-110); POTASSIUM 3.2 mmol/L (3.5-5.1); SODIUM 139 mmol/L (135-145)
[2016-04-28 06:38] LABS: BLOOD UREA NITROGEN 5 mg/dL (9-23); BUN/CREATININE RATIO 8.33; CALCIUM SERUM 8.3 mg/dL (8.4-10.2); CARBON DIOXIDE 19 mmol/L (22-31); CHLORIDE 113 mmol/L (100-111); CREATININE SERUM 0.6 mg/dL (0.6-1.4); GLOM FILT RATE Estimated ABOVE60 mL/min (>60); GLUCOSE FASTING 167 mg/dL (70-110); MAGNESIUM 1.9 mg/dL (1.6-3.0); POTASSIUM 3.3 mmol/L (3.5-5.1); SODIUM 140 mmol/L (135-145)
[2016-04-28] MEDS ORDERED: SPIRONOLACTONE100 MG PO (11:12)
[2016-04-28] MEDS ORDERED: UROCIT-K15 MEQ PO (11:13)
[2016-04-28] MEDS ORDERED: ASMANEX HFA13 GM INH (11:15)
[2016-04-28] MEDS ORDERED: FLONASE 0.05% N16 GM (11:18)
[2016-04-28] MEDS ORDERED: VANTIN200 MG PO (11:19)
[2016-04-28] MEDS ORDERED: HYDROCODONE/APA1 T16 PO (11:21)
[2016-04-28] MEDS ORDERED: TYLENOL80 MG/0.2 PO (11:23)
[2016-04-30 10:13] LABS: ALDOSTERONE SERUM 1 ng/dL (***)
== END 2016-04-28 14:35 | disposition home or self-care (01) | DRG 699 ==
LOC: CED 19:24 → CEDOF 22:36 → C5B 04-23 01:10
PROVIDERS: Emergency Medicine; Internal Medicine; Internal Medicine Gastroenterology; Internal Medicine Nephrology
PROC: 02HV33Z Insertion of Infusion Device into Superior Vena Cava, Percutaneous Approach (ICD-10-PCS; 2016-04-23)
PROC: B518YZA Fluoroscopy of Superior Vena Cava using Other Contrast, Guidance (ICD-10-PCS; 2016-04-23)
PROC: B548ZZA Ultrasonography of Superior Vena Cava, Guidance (ICD-10-PCS; 2016-04-23)
PROC: 3E0234Z Introduction of Serum, Toxoid and Vaccine into Muscle, Percutaneous Approach (ICD-10-PCS; principal; 2016-04-28)
DX: N25.89 Other disorders resulting from impaired renal tubular function (principal); N39.0 Urinary tract infection, site not specified; M62.82 Rhabdomyolysis; D64.9 Anemia, unspecified; E03.9 Hypothyroidism, unspecified; G47.00 Insomnia, unspecified; Z23 Encounter for immunization; Z82.61 Family history of arthritis; Z82.3 Family history of stroke; B96.20 Unspecified Escherichia coli [E. coli] as the cause of diseases classified elsewhere; G89.4 Chronic pain syndrome; M54.9 Dorsalgia, unspecified
CPT/HCPCS: 36415; 70450; 71010; 72148; 76770; 76937; 77001; 80048; 80053; 80076; 80307; 81003; 82088; 82164; 82274; 82436; 82507; 82533; 82550; 82553; 82570; 82607; 82728; 82746; 83036; 83540; 83550; 83735; 83935; 84132; 84133; 84244; 84300; 84439; 84443; 84484; 85025; 85027; 85610; 85730; 87086; 87088; 87186; 90688; 93005; 94760; 96365; 96375; 97165; 99285; C1751; J0696; J1650; J1885

== ENCOUNTER → 2016-05-01 | Outpatient (CLI) | payer OTHER ==
[~2016-05-01] MED LIST changes: +ALBUTEROL17 GM INH; +ALVESCO6.1 G1 INH; +AMBIEN12.5 M1 DOB; +ASMANEX HFA13 GM INH; +FLONASE 0.05% N16 GM; +HYDROCODONE/APA1 T16 PO; +KLONOPIN0.5 M3 PO; +METOPROLOL TAR25 MG PO; +PROAIR RESPICL90 MCG INH; +SPIRONOLACTONE100 MG PO; +SYNTHROID137 MCG PO; +TYLENOL80 MG/0.2 PO; +UROCIT-K15 MEQ PO; +VANTIN200 MG PO; +VERAMYST10 GM; +ZOFRAN PO
[2016-05-01 14:14] LABS: BLOOD UREA NITROGEN 8 mg/dL (9-23); CALCIUM SERUM 9.2 mg/dL (8.4-10.2); CARBON DIOXIDE 26 mmol/L (22-31); CHLORIDE 104 mmol/L (100-111); CREATININE SERUM 0.8 mg/dL (0.6-1.4); GLOM FILT RATE Estimated ABOVE60 mL/min (>60); GLUCOSE FASTING 135 mg/dL (70-110); SODIUM 137 mmol/L (135-145)
== END | disposition home or self-care (01) ==
LOC: SLAB 13:33
PROVIDERS: Internal Medicine Nephrology
DX: E87.6 Hypokalemia (principal)
CPT/HCPCS: 36415; 80048

== ENCOUNTER 2016-09-19 06:42 | Inpatient (IN) | payer OTHER ==
[~2016-09-19] VITALS: Ht 157.5 cm; Wt 68.0 kg
--- NOTE | ~2016-09-19 | EKG ---
PATIENT: KEYLA ROMERO UNIT #: [id number] Ventricular Rate: 93 BPM Atrial Rate: 93 BPM P-R Interval: 144 ms QRS Duration: 82 ms Q-T Interval: 400 ms QTC Calculation(Bezet): 497 ms P Lyons: 50 degrees Calculated R Lyons: -64 degrees Calculated T Lyons: 43 degrees Diagnosis Line: Normal sinus rhythm Diagnosis Line: Left anterior fascicular block Diagnosis Line: Possible Anterior infarct , age undetermined Diagnosis Line: Abnormal ECG Diagnosis Line: When compared with ECG of 27-APR-2016 18:47, Diagnosis Line: Nonspecific T wave abnormality, improved in Diagnosis Line: Inferior leads Diagnosis Line: Confirmed by SKY TOLEDO MD ([id number]) on Diagnosis Line: 09/19/2016 1:36:32 PM INTERPRETING MD: TRE JOSEPH
--- NOTE | ~2016-09-19 | CT2 ---
[facility] A Service of [facility] & [facility] RADIOLOGY TEXT RESULTS PATIENT: KEYLA ROMERO LOCATION: SED : 65 UNIT #: [id number] AGE: [address]: Blaine Peace MD SEX: F ORDER DR: [id number] [address] [address] [id number] E MR#: [id number] Acc #: [id number] NAME: KEYLA ROMERO : 1965 SEX: F STUDY DATE/TIME: 09/19/2016 8:09 UNIT: SED ROOM: STUDY DESCRIPTION: CT Abd and Pelv W Cont Attending Physician: Blaine Peace M.D. Ordering Physician: Blaine Peace M.D. Primary Care Physician: Beatriz Garcia M.D. MEDICAL IMAGING REPORT This report is preliminary unless electronic signature is present. EXAM Abdomen and pelvis CT with contrast. HISTORY Vomiting for the past 5 days with chest and abdominal pain beginning last night. TECHNIQUE Axial images were obtained with intravenous contrast. 100 mL of Isovue was used. This CT exam was performed with one or more of the following radiation dose reduction techniques: Automatic exposure control, adjustment of mA and/or kV according to patient size, and iterative reconstruction. FINDINGS Several nonspecific small low-density liver lesions are seen. These probably represent small cysts or hemangiomas. The largest measures about 7-8 mm in diameter located in the left lobe just under the diaphragm. No suspicious liver lesions are seen. The spleen, pancreas, kidneys and adrenals have a normal appearance. There is no evidence of retroperitoneal adenopathy. The intrahepatic biliary tree is unremarkable. The common bile duct entering the head of the pancreas is dilated to a diameter of 1.7 cm. This could potentially represent a choledochocyst or a choledochocele versus a distal common duct stricture and obstruction. Consider ERCP for further evaluation. No definite pancreatic mass is identified to account for this. The duodenum is mildly distended with mild prominence of the duodenal folds. The small bowel pattern in the jejunum and ileum is unremarkable. The colon is collapsed. The appendix is normal. In the pelvis, there is no evidence of adenopathy, mass or fluid collection. IMPRESSION 1. The common bile duct is dilated to 17 mm entering the head of the STS. [facility] A Service of [facility] RADIOLOGY TEXT RESULTS PATIENT: KEYLA ROMERO LOCATION: [facility] : [birth year] UNIT #: [id number] AGE: [address]: Blaine Peace MD SEX: F ORDER DR: pancreas and then tapers distally but no discrete mass is seen in the head of the pancreas or at the ampulla. The folds in the duodenum are somewhat prominent and the duodenum itself is mildly dilated but the remainder of the small bowel is unremarkable. No definite calcified stones are seen. I recommend ERCP and upper endoscopy for further evaluation of this. 2. Small low-density liver lesions are seen. They are too small to characterize by CT but almost certainly are benign and likely represent small cysts or hemangiomas. 3. Otherwise negative. No evidence of a mechanical small bowel obstruction. Normal appendix. Dictated by... Med Warren M.D. THIS IS AN ELECTRONICALLY VERIFIED REPORT Med Warren M.D. at 09/19/2016 3:39 PM KESHAV/atul TD: 09/19/2016 09:31 JOB #: [id number] MEDICAL IMAGING REPORT Page 1 of 1
--- NOTE | ~2016-09-19 | CR72 ---
[facility] A Service of [facility] RADIOLOGY TEXT RESULTS PATIENT: KEYLA ROMERO LOCATION: SED : 65 UNIT #: [id number] AGE: [address]: Blaine Peace MD SEX: F ORDER DR: [id number] [place] [id number] E MR#: [id number] Acc #: [id number] NAME: KEYLA ROMERO : 1965 SEX: F STUDY DATE/TIME: 09/19/2016 8:21 UNIT: SED ROOM: STUDY DESCRIPTION: CR Chest Single View Portable Attending Physician: Blaine Peace M.D. Ordering Physician: Blaine Peace M.D. Primary Care Physician: Beatriz Garcia M.D. MEDICAL IMAGING REPORT This report is preliminary unless electronic signature is present. EXAM Portable chest HISTORY Chest pain and vomiting with abdominal pain beginning last night. TECHNIQUE Single AP view of the chest was obtained. COMPARISON 04/22/2016 FINDINGS A single AP portable view of the chest shows both lungs to be clear. The heart is normal in size. The mediastinal contour is normal. No significant bone abnormalities are seen. IMPRESSION Normal portable chest. Dictated by... Med Warren M.D. THIS IS AN ELECTRONICALLY VERIFIED REPORT Med Warren M.D. at 09/19/2016 3:39 PM KESHAV/lore TD: 09/19/2016 09:39 JOB #: [id number] MEDICAL IMAGING REPORT [facility] A Service of [facility] RADIOLOGY TEXT RESULTS PATIENT: KEYLA ROMERO LOCATION: SED : 65 UNIT #: [id number] AGE: [address]: Blaine Peace MD SEX: F ORDER DR: Page 1 of 1
[~2016-09-19 06:42] MED LIST changes: -METOPROLOL TAR25 MG PO
[2016-09-19 07:28] LABS: BASOPHIL# 0.1 X10e3 (0-0.3); BASOPHIL% 0.4 % (0-2.5); LYMPHOCYTE# 1.4 X10e3 (1.0-3.5); LYMPHOCYTE% 7.8 % (17.0-45.0); MEAN CELL VOLUME 84.7 FL (83-96); MEAN CORPUSCULAR HEMOGLOBIN 27.7 PG (28-34); MEAN CORPUSCULAR HGB CONC 32.7 g/dL (30-36); MEAN PLATELET VOLUME 8.4 FL (6.5-11.5); MONOCYTE# 0.8 X10e3 (0-1.0); MONOCYTE% 4.3 % (3.0-12.0); NEUTROPHIL# 15.4 X10e3 (1.5-7.1); NEUTROPHIL% 87.5 % (40-75); PLATELET COUNT 406 X10e3 (140-420); RED BLOOD COUNT 5.43 X10e (3.90-5.30); WHITE BLOOD COUNT 17.6 X10e3 (4.0-10.5)
[2016-09-19 07:29] LABS: DIFF IND NO
[2016-09-19 07:39] LABS: ALBUMIN SERUM 5.3 g/dL (3.5-5.0); BILIRUBIN, DIRECT 0.1 mg/dL (0.0-0.2); BILIRUBIN,INDIRECT 0.7 mg/dL (0.0-0.9); BILIRUBIN,TOTAL 0.8 mg/dL (0.2-2.0); BUN/CREATININE RATIO 11.25; CALCIUM SERUM 10.7 mg/dL (8.4-10.2); CREATININE SERUM 0.8 mg/dL (0.6-1.4); GLOM FILT RATE Estimated 85.4 mL/min (>60); POTASSIUM 3.7 mmol/L (3.5-5.1); PROTEIN TOTAL SERUM 8.7 g/dL (6.0-8.3)
[2016-09-19 09:17] LABS: URINE SOURCE CLEAN CATCH
[2016-09-19 09:19] LABS: URINE APPEARANCE CLEAR; URINE BILIRUBIN NEG (NEG); URINE BLOOD TRACE-INTACT (NEG); URINE COLOR YELLOW; URINE GLUCOSE NEG (NORM); URINE KETONE 1+ (NEG); URINE LEUKOCYTE ESTERASE NEG (NEG); URINE NITRATE POS (NEG); URINE PH 6.5 (5-8); URINE PROTEIN NEG (NEG); URINE SPECIFIC GRAVITY <=1.005 (1.003-1.035); URINE UROBILINOGEN 0.2 MG/DL (NORM)
[2016-09-19 09:29] LABS: MICRO INDICATED? YES
[2016-09-19 09:30] LABS: CULTURE INDICATED? YES; URINE BACTERIA 3+ (NEG); URINE WBC 0-2 /[HPF] (0-5)
[2016-09-19 09:31] LABS: URINE SQUAMOUS EPITHELIAL CELL MODERATE /[HPF]
[2016-09-24] MEDS ORDERED: METOPROLOL TAR25 MG PO (17:59)
== END 2016-09-24 20:30 | disposition home or self-care (01) | DRG 445 ==
LOC: SED 06:42 → C4C 12:25
PROVIDERS: Emergency Medicine
PROC: 0F798DZ Dilation of Common Bile Duct with Intraluminal Device, Via Natural or Artificial Opening Endoscopic (ICD-10-PCS; principal; 2016-09-20)
PROC: 0FB98ZX Excision of Common Bile Duct, Via Natural or Artificial Opening Endoscopic, Diagnostic (ICD-10-PCS; 2016-09-20)
PROC: 05H633Z Insertion of Infusion Device into Left Subclavian Vein, Percutaneous Approach (ICD-10-PCS; 2016-09-21)
PROC: B547ZZA Ultrasonography of Left Subclavian Vein, Guidance (ICD-10-PCS; 2016-09-21)
PROC: B24BYZZ Ultrasonography of Heart with Aorta using Other Contrast (ICD-10-PCS; 2016-09-23)
DX: K83.1 Obstruction of bile duct (principal); N39.0 Urinary tract infection, site not specified; E87.2 Acidosis; R11.2 Nausea with vomiting, unspecified; J45.909 Unspecified asthma, uncomplicated; E03.9 Hypothyroidism, unspecified; R00.0 Tachycardia, unspecified; E87.6 Hypokalemia; B96.20 Unspecified Escherichia coli [E. coli] as the cause of diseases classified elsewhere; Z90.710 Acquired absence of both cervix and uterus; G89.4 Chronic pain syndrome; R73.9 Hyperglycemia, unspecified; F41.9 Anxiety disorder, unspecified
CPT/HCPCS: 36415; 71010; 74177; 74330; 80048; 80053; 80061; 80076; 81003; 82010; 82150; 82550; 83036; 83605; 83690; 83735; 84132; 84443; 84484; 84703; 85025; 85027; 85379; 85610; 87040; 87086; 87088; 87186; 88104; 93005; 93306; 94760; 96374; 96375; 96376; 99285; C9113; J0295; J0360; J2060; J2250; J2270; J2405; J2550; J2765; J3010; J3475; J3490; Q9967